=== PATIENT | male | born 1965 | race Caucasian/White ===

== ENCOUNTER 2018-08-30 15:06 | Emergency (ER) | payer OTHER ==
[~2018-08-30] VITALS: Ht 185.4 cm; Wt 86.2 kg
[2018-08-30] MEDS ORDERED: Thiamine HCl 100 MG in D5W 55 ML IVPB STA (15:21)
[2018-08-30] MEDS ORDERED: Albuterol/Ipratropium 3ml neb HHN ONE (15:30)
[2018-08-30 15:58] LABS: BASOPHILS % (AUTO) 2.1 % (0.0-2.0); EOSINOPHILS % (AUTO) 4.5 % (0.0-3.0); HEMATOCRIT 44.7 % (42.0-52.0); HEMOGLOBIN 15.4 G/DL (14.2-18.0); LYMPHOCYTES % (AUTO) 41.1 % (20.0-45.0); MEAN CORPUSCULAR VOLUME 94 FL (80-99); MONOCYTES % (AUTO) 7.3 % (1.0-10.0); PLATELET COUNT 271 K/UL (150-450); RED BLOOD COUNT 4.74 M/UL (4.70-6.10)
--- NOTE | 2018-08-30 15:58 | Emergency Room Report ---
History of Present Illness General Chief Complaint: Generalized Weakness Source: Patient, EMS Present Illness HPI The patient presents with weakness. He was drinking alcohol earlier today. His legs gave out on him. He has chronic knee pain and it is not unusual for his knee to give out on him. He denies drinking because of depression. He did not lose consciousness. There is no seizure activity. In addition he feels short of breath and has a history of COPD. He has been wheezing but denies any productive cough, fever, chills. He has an inhaler and has been using it. He has had prednisone in the past. No calf pain or edema. He still smokes. He denies nausea, vomiting, diarrhea and hemoptysis, diarrhea or melena. Allergies: Coded Allergies: No Known Allergies (Unverified , 09/05/14) Patient History Past Medical History: see triage record Social History: Reports: smoking, alcohol use, drug use - [facility] Social History Narrative Rehab [id number] Reviewed Nursing Documentation: PMH: Agreed; PSxH: Agreed Nursing Documentation-PMH Past Medical History: No History, Except For Hx Asthma: Yes Hx COPD: Yes Hx Diabetes: Yes Review of Systems All Other Systems: negative except mentioned in HPI Physical Exam Vital Signs Date Time Temp Pulse Resp B/P (MAP) Pulse Ox O2 Delivery O2 Flow Rate FiO2 08/30/18 15:07 98.1 100 18 110/80 (90) 94 Room Air 08/30/18 15:36 21 Sp02 EP Interpretation: reviewed, normal General Appearance: well appearing, no apparent distress, GCS 15 Head: normocephalic, atraumatic Eyes: bilateral eye PERRL, bilateral eye EOMI, bilateral eye Scleral Injection ENT: moist mucus membranes Neck: supple Respiratory: wheezing, expiration, inspiration Cardiovascular #1: regular rate, rhythm Cardiovascular #2: 2+ radial (R) Gastrointestinal: normal inspection, normal bowel sounds, non tender, no mass, non-distended Musculoskeletal: back normal, normal range of motion, tender - Right knee with slight decreased range of motion Neurologic: alert, oriented x3, motor strength/tone normal, DTRs symmetric, sensory intact, other - ataxic, slurred speech, nystagmus Psychiatric: no suicidal/homicidal ideation, depressed affect Skin: no rash Medical Decision Making Diagnostic Impression: Primary Impression: Alcohol intoxication Qualified Codes: F10.929 - Alcohol use, unspecified with intoxication, unspecified Additional Impressions: Chronic knee pain Qualified Codes: M25.561 - Pain in right knee; G89.29 - Other chronic pain COPD (chronic obstructive pulmonary disease) Qualified Codes: J44.9 - Chronic obstructive pulmonary disease, unspecified Tobacco abuse ER Course Patient presents with weakness after ingesting alcohol and having chronic knee problems. In addition he is got wheezing. Differential includes acute myocardial infarction, elect light imbalance, exacerbation of COPD, alcohol intoxication amongst others. The patient will be evaluated with EKG, chest x- ray and labs. The patient will be given a breathing treatment IV hydration and thiamine. EKG without injury. Chest x-ray with COPD. CBC with normal white count but eosinophilia is present. CMP and urinalysis negative. Blood alcohol elevated. With observation and IV hydration patient ambulatory. Still is unsteady on his feet. Further observation is needed. COPD improved and no respiratory distress. Due to the presence of eosinophilia prednisone given orally. Reji wrap was applied to the right knee by the environmental field services technician. Tension was good and patient had improvement afterwards. Distal neurovascular exam was normal as checked by me. Discussed with patient smoking cessation and the need to return to his Alcoholics Anonymous sponsor. Patient signed out to Dr. Bolton for repeat evaluation and determination of how to return patient to his [id number]. Laboratory Tests Test 08/30/18 15:35 08/30/18 15:40 White Blood Count 6.0 K/UL (4.8-10.8) Red Blood Count 4.74 M/UL (4.70-6.10) Hemoglobin 15.4 G/DL (14.2-18.0) Hematocrit 44.7 % (42.0-52.0) Mean Corpuscular Volume 94 FL (80-99) Mean Corpuscular Hemoglobin 32.6 PG (27.0-31.0) H Mean Corpuscular Hemoglobin Concent 34.5 G/DL (32.0-36.0) Red Cell Distribution Width 11.0 % (11.6-14.8) L Platelet Count 271 K/UL (150-450) Mean Platelet Volume 5.2 FL (6.5-10.1) L Neutrophils (%) (Auto) 45.0 % (45.0-75.0) Lymphocytes (%) (Auto) 41.1 % (20.0-45.0) Monocytes (%) (Auto) 7.3 % (1.0-10.0) Eosinophils (%) (Auto) 4.5 % (0.0-3.0) H Basophils (%) (Auto) 2.1 % (0.0-2.0) H Sodium Level 142 MMOL/L (136-145) Potassium Level 4.3 MMOL/L (3.5-5.1) Chloride Level 105 MMOL/L (98-107) Carbon Dioxide Level 26 MMOL/L (21-32) Anion Gap 11 mmol/L (5-15) Blood Urea Nitrogen 9 mg/dL (7-18) Creatinine 0.7 MG/DL (0.55-1.30) Estimate Glomerular Filtration Rate > 60 mL/min (>60) Glucose Level 87 MG/DL (74-106) Calcium Level 8.6 MG/DL (8.5-10.1) Total Bilirubin 0.2 MG/DL (0.2-1.0) Aspartate Amino Transferase (AST) 17 U/L (15-37) Alanine Aminotransferase (ALT) 12 U/L (12-78) Alkaline Phosphatase 81 U/L (46-116) Total Protein 6.7 G/DL (6.4-8.2) Albumin 3.4 G/DL (3.4-5.0) Globulin 3.3 g/dL Albumin/Globulin Ratio 1.0 (1.0-2.7) Salicylates Level 6.4 ug/mL (2.8-20) Acetaminophen Level < 2 MCG/ML (10-30) L Serum Alcohol 298 mg/dL Urine Color Pale yellow Urine Appearance Clear Urine pH 5 (4.5-8.0) Urine Specific [place] 1.010 (1.005-1.035) Urine Protein Negative (NEGATIVE) Urine Glucose (UA) Negative (NEGATIVE) Urine Ketones Negative (NEGATIVE) Urine Blood Negative (NEGATIVE) Urine Nitrite Negative (NEGATIVE) Urine Bilirubin Negative (NEGATIVE) Urine Urobilinogen Normal MG/DL (0.0-1.0) Urine Leukocyte Esterase Negative (NEGATIVE) Urine Opiates Screen Negative (NEGATIVE) Urine Barbiturates Screen Negative (NEGATIVE) Phencyclidine (PCP) Screen Negative (NEGATIVE) Urine Amphetamines Screen Negative (NEGATIVE) Urine Benzodiazepines Screen Negative (NEGATIVE) Urine Cocaine Screen Negative (NEGATIVE) Urine Marijuana (THC) Screen Negative (NEGATIVE) EKG Diagnostic Results Rate: normal Rhythm: NSR ST Segments: no acute changes Rhythm Strip Diag. Results EP Interpretation: yes Rhythm: NSR, no PVC's, no ectopy Chest X-Ray Diagnostic Results Chest X-Ray Diagnostic Results : Chest X-Ray Ordered: Yes # of Views/Limited/Complete: 1 View Indication: Other EP Interpretation: Yes Interpretation: no consolidation, no effusion, no pneumothorax, other - COPD Impression: Other Electronically Signed by: Electronically signed by Jeremias Chowdary MD Last Vital Signs Date Time Temp Pulse Resp B/P (MAP) Pulse Ox O2 Delivery O2 Flow Rate FiO2 08/30/18 23:15 98.1 82 20 135/80 96 Room Air 21 Status: improved Disposition: ASSISTED LIVING - Rehab [id number] Condition: Improved Scripts Acetaminophen (Tylenol) 325 Mg Tablet 650 MG ORAL Q6H PRN for Prn Pain/Headache/Temp > 101, #20 TAB 0 Refills Prov: Jeremias Chowdary MD 08/30/18 Prednisone* (PREDNISONE*) 20 Mg Tablet 40 MG ORAL DAILY, #10 TAB Prov: Jeremias Chowdary MD 08/30/18 Jeremias Chowdary MD Aug 30, 2018 15:57
[2018-08-30 16:14] LABS: ANION GAP 11 mmol/L (5-15); BLOOD UREA NITROGEN 9 mg/dL (7-18); CALCIUM 8.6 MG/DL (8.5-10.1); CARBON DIOXIDE 26 MMOL/L (21-32); CHLORIDE 105 MMOL/L (98-107); CREATININE 0.7 MG/DL (0.55-1.30); POTASSIUM 4.3 MMOL/L (3.5-5.1); SODIUM 142 MMOL/L (136-145)
[2018-08-30 16:15] LABS: APPEARANCE,URINE CLEAR; BILIRUBIN, URINE NEGATIVE (NEGATIVE); COLOR,URINE PALE YELLOW; GLUCOSE, URINE (UA) NEGATIVE (NEGATIVE); KETONES,URINE NEGATIVE (NEGATIVE); LEUKOCYTE ESTERASE ,URINE NEGATIVE (NEGATIVE); NITRITE,URINE NEGATIVE (NEGATIVE); PH,URINE 5 (4.5-8.0); PROTEIN,URINE NEGATIVE (NEGATIVE); UROBILINOGEN,URINE NORMAL MG/DL (0.0-1.0)
--- NOTE | 2018-08-30 16:17 | Diagnostic Imaging Report ---
Indication: Dyspnea Comparison: 09/05/2014 A single view chest radiograph was obtained. Findings: Cardiomediastinal appearance is within normal limits for age. The lungs are clear. Pulmonary vascularity is appropriate. The diaphragmatic contour is smooth and costophrenic angles are sharp. No pleural effusions are identified. The bones are unremarkable. Impression: No acute findings
[2018-08-30 16:18] LABS: ALANINE AMINOTRANSFERASE 12 U/L (12-78); ALBUMIN 3.4 G/DL (3.4-5.0); ALKALINE PHOSPHATASE 81 U/L (46-116); ASPARTATE AMINO TRANSFERASE 17 U/L (15-37); BILIRUBIN,TOTAL 0.2 MG/DL (0.2-1.0)
[2018-08-30 16:33] VITALS: BP 115/87
[2018-08-30 20:52] VITALS: BP 132/80
[2018-08-30] MEDS ORDERED: TYLENOL325 MG ORAL (21:32)
[2018-08-30] MEDS ORDERED: PREDNISONE20 MG ORAL (21:32)
[2018-08-30] MEDS ORDERED: DEPAKOTE250 MG PO (21:45)
[2018-08-30] MEDS ORDERED: REMERON15 MG ORAL (21:45)
[2018-08-30 23:15] VITALS: BP 135/80
--- NOTE | 2018-08-31 15:35 | Cardiology Report ---
APPROVED REPORT EKG Measurement Heart [id number] Normal sinus rhythm Normal ECG
== END 2018-08-30 23:15 | disposition home or self-care (01) ==
LOC: EDBD 15:06 → EMR 17:20
DX: F10.929 Alcohol use, unspecified with intoxication, unspecified (principal); M25.561 Pain in right knee; G89.29 Other chronic pain; J44.9 Chronic obstructive pulmonary disease, unspecified; F17.200 Nicotine dependence, unspecified, uncomplicated; E11.9 Type 2 diabetes mellitus without complications
CPT/HCPCS: 36415; 71045; 80053; 80307; 80329; 81003; 85025; 93005; 94640; 94664; 96361; 96365; 99284; J7512; J7620